=== PATIENT | male | born 1985 | race Hispanic/Latino ===

== ENCOUNTER 2018-12-09 07:50 | Emergency (ER) | payer OTHER ==
[~2018-12-09] VITALS: Ht 167.6 cm; Wt 81.8 kg
[2018-12-09 07:51] VITALS: BP 165/91
[2018-12-09] MEDS ORDERED: TRAZ25TA PO (07:58)
[2018-12-09] MEDS ORDERED: methylpred (07:58)
--- NOTE | 2018-12-09 08:34 | REP ---
Clinical: Pain increased after running Technique: AP, lateral, bilateral oblique views right foot . Findings: The osseous structures and joint spaces are intact and normal. There is no evidence for acute fracture or dislocation. Surrounding soft tissues are unremarkable. No subcutaneous emphysema or radiodense foreign body. Impression: Normal radiographic evaluation. No acute fracture or dislocation. Electronically Signed by Janes Mo MD 12/09/2018 08:25 A
[2018-12-09] MEDS ORDERED: traMADol 50 MG TAB PO ONE (09:15)
== END 2018-12-09 09:28 | disposition home or self-care (01) ==
LOC: M ED 07:50
DX: M72.2 Plantar fascial fibromatosis (principal)

== ENCOUNTER 2019-02-07 14:07 | Inpatient (IN) | payer OTHER ==
[~2019-02-07] VITALS: Ht 167.6 cm; Wt 84.0 kg
[~2019-02-07 14:07] MED LIST: TRAZ25TA PO; methylpred
[2019-02-07 15:17] LABS: HEMATOCRIT 48.3 % (42.0-52.0); HEMOGLOBIN 16.6 g/dl (13.5-17.5); MEAN CORPUSCULAR HEMOGLOBIN 29.5 pg (27.0-33.0); MEAN CORPUSCULAR HGB CONC 34.4 g/dl (32.0-36.5); MEAN CORPUSCULAR VOLUME 85.8 fl (80.0-96.0); PLATELET COUNT, AUTOMATED 268 10^3/uL (150-450); RED BLOOD COUNT 5.63 10^6/uL (4.30-6.10)
[2019-02-07 16:10] LABS: ACETAMINOPHEN LEVEL < 2.0 UG/ML (10.0-30.0); ALBUMIN 4.1 GM/DL (3.2-5.2); ALT/SGPT 55 U/L (12-78); BILIRUBIN,DIRECT < 0.1 MG/DL (0.0-0.2); BILIRUBIN,TOTAL 0.5 MG/DL (0.2-1.0); BLOOD UREA NITROGEN 13 MG/DL (7-18); CALCIUM LEVEL 8.8 MG/DL (8.5-10.1); CARBON DIOXIDE LEVEL 29 MEQ/L (21-32); CHLORIDE LEVEL 106 MEQ/L (98-107); CREATININE FOR GFR 1.08 MG/DL (0.70-1.30); ETHYL ALCOHOL (ETHANOL) < 0.003 % (0.000-0.010); GLOMERULAR FILTRATION RATE > 60.0 (>60); GLUCOSE, FASTING 102 MG/DL (70-100); POTASSIUM SERUM 3.8 MEQ/L (3.5-5.1); SALICYLATE LEVEL < 1.7 MG/DL (5.0-30.0); SODIUM LEVEL 141 MEQ/L (136-145); TOTAL PROTEIN 7.7 GM/DL (6.4-8.2)
[2019-02-07 17:52] LABS: AMPHETAMINES LEVEL URINE NEGATIVE (NEGATIVE); BARBITURATES URINE NEGATIVE (NEGATIVE); BENZODIAZEPINES URINE NEGATIVE (NEGATIVE); CANNABINOIDS URINE NEGATIVE (NEGATIVE); COCAINE METABOLITE URINE NEGATIVE (NEGATIVE); METHADONE URINE NEGATIVE (NEGATIVE); OPIATES URINE NEGATIVE (NEGATIVE); PHENCYCLIDINE URINE NEGATIVE (NEGATIVE)
[2019-02-07] MEDS ORDERED: traZODone 50 MG TAB PO ONE (21:30)
[2019-02-07] MEDS ORDERED: IBUPROFEN 600 MG TAB PO ONE (21:30)
[2019-02-08] MEDS ORDERED: IBUPROFEN 600 MG TAB PO ONE (03:00)
[2019-02-08] MEDS ORDERED: ACETAMINOPHEN TAB 650MG DOSE (2X325MG) PO ONE (03:00)
[2019-02-08] MEDS ORDERED: MELA10CA PO (11:12)
[2019-02-08] MEDS ORDERED: ACETAMINOPHEN TAB 650MG DOSE (2X325MG) PO PRN (17:15)
[2019-02-08] MEDS ORDERED: MOM 30ML SUSPENSION UDC PO PRN (17:15)
[2019-02-08] MEDS ORDERED: MAALOX 30 ML SUSP *UDC PO PRN (17:15)
[2019-02-08] MEDS: NICOTINE 21MG/24HR 1 EA TRANSDERMAL TD SCH (17:30)
[2019-02-08 18:20] VITALS: BP 124/79
[2019-02-08] MEDS: traZODone 50 MG TAB PO PRN (22:50)
[2019-02-09 06:50] VITALS: BP 121/73
[2019-02-09] MEDS: NICOTINE 21MG/24HR 1 EA TRANSDERMAL TD SCH (08:58)
[2019-02-09] MEDS ORDERED: FLUoxetine 20 MG CAP PO SCH (09:00)
[2019-02-09] MEDS: IBUPROFEN 600 MG TAB PO PRN (10:30)
[2019-02-09 12:00] VITALS: BP 126/70
[2019-02-09] MEDS ORDERED: hydrOXYzine 50 MG TAB PO PRN (12:15)
[2019-02-09] MEDS: SERTRALINE HCL 50 MG TAB PO SCH (12:58)
--- NOTE | 2019-02-09 13:12 | HPE ---
DATE OF ADMISSION: 02/08/2019 CHIEF COMPLAINT: History and physical for inpatient mental health unit. HISTORY: Yevgeniy Cormier is a [place] admitted to the mental health unit. The hospitalists are evaluating him for medical issues. He has a history of chronic back pain. He has had increased left paraspinal pain, has been intermittent for over a year, but constant for the last few days. PAST MEDICAL HISTORY: Looks otherwise benign. OUTPATIENT MEDICATIONS: - trazodone - melatonin ALLERGIES: None listed. 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 He is . He has been depressed and angry over his divorce 2 years ago. REVIEW OF SYSTEMS: No weakness in the legs. No bowel or bladder dysfunction. Gait is not affected. PHYSICAL EXAMINATION: Vital signs per flow sheet. He is alert and conversant. HEENT unremarkable. Lungs clear. Heart regular rhythm without murmur. Abdomen soft, nontender, no masses. No peripheral edema. Normal strength, reflexes, sensation in the legs. Straight-leg raising negative bilaterally. He has tender, spastic paravertebral muscles in the midthoracic region. A bit of scoliosis probably related to the muscle spasm. Normal distal neurologic function. IMPRESSION: Back pain. PLAN: He has already an MRI of the cervical and lumbosacral spine ordered. His pain is actually more thoracic right now so will throw a thoracic MRI scan on there as well. Anticipate that whatever findings are present, could be dealt with as an outpatient.
[2019-02-09 18:00] VITALS: BP 130/72
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
[2019-02-09 21:00] VITALS: BP 124/70
[2019-02-10 06:53] VITALS: BP 122/80
[2019-02-10] MEDS: SERTRALINE HCL 50 MG TAB PO SCH (08:39)
--- NOTE | 2019-02-10 14:59 | REP ---
MR lumbar spine without contrast History: Back pain There is no disc bulge or herniation at the L1-2 through L5-L1 levels. The nerves exit the neural foramina without compression. The conus medullaris is normal in appearance terminating at the level of the L1-2 intervertebral disc. There is fatty infiltration of the filum terminale. Normal signal intensity is present in the lumbar intervertebral discs. A hemangioma is present in the L4 vertebral body. Normal signal intensity is present in the remaining lumbar vertebral bodies. Impression: There is no disc bulge or herniation. Electronically Signed by Paulino Avelar MD 02/10/2019 02:51 P
--- NOTE | 2019-02-10 15:05 | REP ---
MR CERVICAL SPINE WITHOUT CONTRAST: HISTORY: Neck pain. A disc bulge is present at the C4-5 level. There is minimal effacement of the thecal sac without spinal cord compression. The C4 neural foramina are patent. A disc bulge is present at the C5-6 level. There is minimal effacement of the thecal sac without spinal cord compression. The C5 neural foramina are patent. There is no other disc bulge or herniation. The remaining neural foramina are patent. The spinal cord is normal in signal intensity. The cerebellar tonsils extend 3 mm inferior through the foramen magnum. Normal signal intensity is present in the cervical vertebral bodies. IMPRESSION: There is cervical spondylosis at the C4-5 and C5-6 levels without spinal cord compression. Electronically Signed by Paulino Avelar MD 02/10/2019 03:09 P
--- NOTE | 2019-02-10 15:08 | REP ---
MR thoracic spine without contrast History: Back pain There is no disc bulge or herniation. There is an increase in the amount of epidural fat. This extends from the T3-4 level inferior to the T8-9 level. There is minimal to mild compression of the thecal sac. The neural foramina are patent. The spinal cord is normal in signal intensity. A hemangioma is present in the T8 vertebral body. Normal signal intensity is present in the the remaining thoracic vertebral bodies. Impression: 1. There is no disc bulge or herniation. 2. Epidural lipomatosis. Electronically Signed by Paulino Avelar MD 02/10/2019 03:00 P
--- NOTE | 2019-02-10 17:57 | IPNPDOC ---
Subjective Date Seen The patient was seen on 02/10/19. Subjective Chief Complaint/HPI Patient seen and examined at bedside. States that his neck/back pain is improved today. He states that the pain is usually worse following physical training while in the . He notes that he has been doing an excessive amount of sit-ups in the recent weeks as part of his training, and notes that the aforementioned pain is exacerbated by sitting up/crunching movement. Denies any acute complaints of chest pain, palpitations, shortness of breath, urinary/fecal incontinence, or any signs of cauda equina. Objective Physical Examination General Exam: Positive: Alert, Cooperative, No Acute Distress ENT Exam: Positive: Atraumatic, Mucous membr. moist/pink Neck Exam: Negative: JVD Chest Exam: Positive: Clear to auscultation, Normal air movement Heart Exam: Positive: Rate Normal, Normal S1, Normal S2 Abdomen Exam: Positive: Soft; Negative: Tenderness Extremity Exam: Negative: Tenderness, Swelling Neuro Exam: Positive: Strength at 5/5 X4 ext, Normal Tone Psych Exam: Positive: Oriented x 3 Other physical findings Mild tenderness to palpation of the paravertebral cervical spinal muscles. Mild tenderness to palpation in the paravertebral area in the L3-4 region. Strength intact Assessment /Plan Plan/VTE VTE Prophylaxis Ordered?: No VTE Exclusion Mechanical Proph: Low Risk for VTE Plan Acute on Chronic Neck/Back Pain 2/2 Physical Training MRI of the Cervical, Thoracic, and Lumbar Spine with no acute findings Follow up as outpatient for PT for ROM exercises/stretching Cont supportive treatment Elevated TSH Free T4 noted to be within normal limits, but on the lower end Repeat TFT's in 6-8 weeks--can consider starting low dose levothyroxine at that time if the patient's TSH remains elevated and Free T4 is low/low normal We will cont to monitor for now Depression Management as per Psychiatry VS, I&O, 24H, Fishbone Vital Signs/I&O Vital Signs Date Time Temp Pulse Resp B/P (MAP) Pulse Ox O2 Delivery O2 Flow Rate FiO2 02/10/19 06:53 98.5 70 14 122/80 (94) 02/08/19 18:20 98 02/08/19 18:03 Room Air Laboratory Data 24H LABS Laboratory Tests 2 02/10/19 11:44: Free Thyroxine 0.76 ALEXEY RAMOS MD Feb 10, 2019 17:57
[2019-02-10 18:00] VITALS: BP 128/63
--- NOTE | 2019-02-10 21:24 | MHIPNPDOC ---
[facility] Progress Note Progress Note DATE OF SERVICE: 02/10/19 HISTORY: Patient is a 33 -year-old , male, who says that he has felt depressed for about 1.5 years.He says that the trigger was the separation from his . he was for 3 years, he says working in the [employer] for 2.5 years didn't help, in fact it was pretty bad because his ex didn't like to be alone because she didn't like to be alone when she was away from the family. Both of them are from [place] and both families are still in [place]. He says he started feeling a if he wanted to kill his Isaac because his SADA has not been empathetic with him, he has been hard on him. 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 He said that he told them that he was not requesting to be working during the days forever, it was just while his adapted to be here but she didn't adapt, he thinks it was because he was not spending time with her and she spent only 10 days here and she went back to [place]. 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 He acknowledges that he is using liquor and he needs help. VITAL SIGNS: See below. NEW TEST RESULTS: See below CURRENT MEDICATIONS: See below. MENTAL STATUS EXAMINATION: Patient is a 33nyear old male, who is alert, cooperative, he seems less tired than yesterday, he looks more organized. Speech: Is normal in rate, tone and volume. Language skills are normal. Thought processes including: a little disorganized, it takes time for him to process his thoughts. Thought content: depressed and anxious thoughts, although he is slightly better today. Description of abnormal or psychotic thoughts: denies having SI, denies having HI, denies AV hallucinations. Judgment: limited Insight: limited. Orientation: x 3 Recent and remote memory: x 3. Attention span and concentration: fair. Language: normal. Fund of knowledge: average. Mood: less depressed: "I'm trying to focus on hte positive things". Affect: constricted, sad DIAGNOSES: 1. Major Depressive disorder with psychosis ASSESSMENT: The patient continues to feel depressed but he is trying to feel better. He says that he wants to improve. 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 Patient is pleasant and cooperative, MANAGEMENT PLAN: Will continue with the same treatment plan. TIME SPENT: 20 minutes. Vital Signs Vital Signs Date Time Temp Pulse Resp B/P (MAP) Pulse Ox O2 Delivery O2 Flow Rate FiO2 02/10/19 18:00 98.5 86 14 128/63 (84) 02/08/19 18:20 98 02/08/19 18:03 Room Air Laboratory Data 24H Labs Laboratory Tests 2 02/10/19 11:44: Free Thyroxine 0.76 Current Medications Current Medications Acetaminophen (Tylenol Tab) 650 mg Q6HP PRN PO HEADACHE or DISCOMFORT; Start 02/08/19 at 17:15; Status Cancel Al Hydrox/Mg Hydrox/Simethicone (Mylanta) 30 ml Q4HP PRN PO HEARTBURN/INDIGESTION; Start 02/08/19 at 17:15 Fluoxetine HCl (PROzac) 20 mg DAILY PO ; Start 02/09/19 at 09:00; Status Cancel Home Med (Med Rec Complete!) ASDIRECTED XX ; Start 02/08/19 at 11:15; Stop 02/08/19 at 11:15; Status DC Hydroxyzine HCl (Atarax) 50 mg Q6H PRN PO ANXIETY/AGITATION Last administered on 02/09/19at 15:46; Start 02/09/19 at 12:15 Ibuprofen (Advil) 600 mg Q6HP PRN PO MODERATE PAIN (PS 5-7) Last administered on 02/09/19at 10:30; Start 02/09/19 at 10:15 Magnesium Hydroxide (Milk Of Magnesia) 30 ml DAILYPRN PRN PO CONSTIPATION; Start 02/08/19 at 17:15 Nicotine (Nicoderm Cq 21mg) 1 patch DAILY TD ; Start 02/08/19 at 17:30; Stop 02/09/19 at 13:11; Status DC Sertraline HCl (Zoloft) 50 mg DAILY PO Last administered on 02/10/19at 08:39; Start 02/09/19 at 09:00 Trazodone HCl (Desyrel) 50 mg QHSP PRN PO INSOMNIA Last administered on 9at 22:50; Start 02/08/19 at 17:15 Allergies Coded Allergies: No Known Allergies (Unverified , 12/09/18) LORIE RIDDLE MD Feb 10, 2019 21:24
[2019-02-11 06:32] VITALS: BP 115/63
[2019-02-11] MEDS: SERTRALINE HCL 50 MG TAB PO SCH (09:03)
[2019-02-11] MEDS: IBUPROFEN 600 MG TAB PO PRN (09:04)
[2019-02-11 18:29] VITALS: BP 138/68
[2019-02-11] MEDS: traZODone 50 MG TAB PO PRN (20:42)
[2019-02-12 06:59] VITALS: BP 118/56
[2019-02-12] MEDS: SERTRALINE HCL 50 MG TAB PO SCH (09:17)
[2019-02-12] MEDS: CYCLOBENZAPRINE 5MG TABLET PO SCH ×2 (11:46→21:46)
--- NOTE | 2019-02-12 11:46 | MHIPN ---
DATE: 02/12/2019 SUBJECTIVE: I am depressed. I messed up my marriage. I have back ache and the ibuprofen is not helping. 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 He also complains of severe back ache. MRI was reviewed. There is some cervical spondylosis. He has been on ibuprofen. MENTAL STATUS EXAM: Appearance: He is well-groomed in hospital gown. Behavior is cooperative. Somewhat restless and pacing. Eye contact: Normal. Speech: Spontaneous. Conversant. Affect is constricted, sad and tearful. Somewhat dramatic at times. Mood is depressed and anxious. Thought content: Denied any auditory or visual hallucinations. Denied any delusions, paranoia, denied suicidal or homicidal thoughts currently. Thought process goal-directed. He is alert and oriented to time, place and person. Memory is intact. Insight and judgment are fair to limited. VITAL SIGNS: Temperature 98.2, pulse is 73, respirations 14, blood pressure 118/56. CURRENT MEDICATIONS: - sertraline 50 mg once daily - trazodone 50 mg at bedtime as needed - ibuprofen 600 mg every 6 hours as needed DIAGNOSES: Unspecified mood disorder. Rule out major depressive disorder. Alcohol use disorder. Chronic back ache. PLAN: Continue ibuprofen and increase his Zoloft to 100 mg in a.m. and add cyclobenzaprine 5 mg twice a day. Continue individual and group therapy. Coordination of care provided with nursing staff and treatment team. Estimated length of stay: 4 to 5 days Patient currently is depressed and still dangerous to self or others.
--- NOTE | 2019-02-12 15:57 | MHIPNPDOC ---
[facility] Progress Note Progress Note DATE OF SERVICE: 02/11/19--- late entry DATE OF SERVICE: 02/10/19 HISTORY: Patient is a 33 -year-old , male, who says that he has felt depressed for about 1.5 years.He says that the trigger was the separation from his . he was for 3 years, he says working in the [employer] for 2.5 years didn't help, in fact it was pretty bad because his ex didn't like to be alone because she didn't like to be alone when she was away from the family. Both of them are from [place] and both families are still in [place]. He says he started feeling a if he wanted to kill his Isaac because his SADA has not been empathetic with him, he has been hard on him. 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 He said that he told them that he was not requesting to be working during the days forever, it was just while his adapted to be here but she didn't adapt, he thinks it was because he was not spending time with her and she spent only 10 days here and she went back to [place]. 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 He acknowledges that he is using liquor and he needs help. VITAL SIGNS: See below. NEW TEST RESULTS: See below CURRENT MEDICATIONS: See below. MENTAL STATUS EXAMINATION: Patient is a 33nyear old male, who is alert, cooperative, he seems less tired than yesterday, he looks more organized. Speech: Is normal in rate, tone and volume. Language skills are normal. Thought processes including: a little disorganized, it takes time for him to process his thoughts. Thought content: depressed, frustrated, angry (but contained) Description of abnormal or psychotic thoughts: denies having SI, denies having HI, denies AV hallucinations. Judgment: limited Insight: limited Orientation: x 3 Recent and remote memory: x 3. Attention span and concentration: fair. Language: normal. Fund of knowledge: average. Mood: less depressed, angry, frustrated. Affect: constricted, sad DIAGNOSES: 1. Major Depressive disorder with psychosis ASSESSMENT: The patient continued to be depressed, expressed his anger and frustration. He agreed going for prison treatment. This feature writer tried to get in touch with Neurology but they were closed for the day at [facility] and this was not an Emergency, so, I will contact Dr. Fisher on Thursday regarding patient's MRI which shows an hemangioma at the level or L4 as well as some bulges and other abnormalities in the cervical spine. MANAGEMENT PLAN: Will continue with the same treatment plan. TIME SPENT: 20 minutes. Vital Signs Vital Signs Date Time Temp Pulse Resp B/P (MAP) Pulse Ox O2 Delivery O2 Flow Rate FiO2 02/12/19 06:59 98.2 73 14 118/56 (76) 02/10/19 21:00 98 02/08/19 18:03 Room Air Current Medications Current Medications Acetaminophen (Tylenol Tab) 650 mg Q6HP PRN PO HEADACHE or DISCOMFORT; Start 02/08/19 at 17:15; Status Cancel Al Hydrox/Mg Hydrox/Simethicone (Mylanta) 30 ml Q4HP PRN PO HEARTBURN/INDIGESTION; Start 02/08/19 at 17:15 Cyclobenzaprine HCl (Flexeril) 5 mg BID PO Last administered on 02/12/19at 11:46; Start 02/12/19 at 09:00 Fluoxetine HCl (PROzac) 20 mg DAILY PO ; Start 02/09/19 at 09:00; Status Cancel Home Med (Med Rec Complete!) ASDIRECTED XX ; Start 02/08/19 at 11:15; Stop 02/08/19 at 11:15; Status DC Hydroxyzine HCl (Atarax) 50 mg Q6H PRN PO ANXIETY/AGITATION Last administered on 02/09/19at 15:46; Start 02/09/19 at 12:15 Ibuprofen (Advil) 600 mg Q6HP PRN PO MODERATE PAIN (PS 5-7) Last administered on 02/11/19at 09:04; Start 02/09/19 at 10:15 Magnesium Hydroxide (Milk Of Magnesia) 30 ml DAILYPRN PRN PO CONSTIPATION; Start 02/08/19 at 17:15 Nicotine (Nicoderm Cq 21mg) 1 patch DAILY TD ; Start 02/08/19 at 17:30; Stop 02/09/19 at 13:11; Status DC Sertraline HCl (Zoloft) 50 mg DAILY PO Last administered on 02/12/19at 09:17; Start 02/09/19 at 09:00; Stop 02/12/19 at 11:18; Status DC Sertraline HCl (Zoloft) 100 mg DAILY PO ; Start 02/13/19 at 09:00 Trazodone HCl (Desyrel) 50 mg QHSP PRN PO INSOMNIA Last administered on 02/11/19at 20:42; Start 02/08/19 at 17:15 Allergies Coded Allergies: No Known Allergies (Unverified , 12/09/18) LORIE RIDDLE MD Feb 12, 2019 15:57
[2019-02-12 18:00] VITALS: BP 118/66
[2019-02-12] MEDS: traZODone 50 MG TAB PO PRN (21:46)
[2019-02-13 06:55] VITALS: BP 132/63
[2019-02-13] MEDS: SERTRALINE 100 MG TAB PO SCH (09:00)
[2019-02-13] MEDS: CYCLOBENZAPRINE 5MG TABLET PO SCH ×2 (09:00→20:50)
[2019-02-13 18:00] VITALS: BP 129/65
[2019-02-14 06:23] VITALS: BP 116/56
[2019-02-14] MEDS: SERTRALINE 100 MG TAB PO SCH (09:09)
[2019-02-14] MEDS: CYCLOBENZAPRINE 5MG TABLET PO SCH ×2 (09:09→21:21)
[2019-02-14 18:03] VITALS: BP 136/81
[2019-02-14] MEDS: BENZTROPINE 0.5 MG TAB PO SCH (21:00)
[2019-02-14] MEDS: PALIPERIDONE 3 MG ER TAB (INVEGA) PO SCH (21:00)
[2019-02-15 06:48] VITALS: BP 113/61
[2019-02-15] MEDS: PALIPERIDONE 3 MG ER TAB (INVEGA) PO SCH ×2 (09:00→21:00)
[2019-02-15] MEDS: CYCLOBENZAPRINE 5MG TABLET PO SCH ×2 (09:27→21:34)
[2019-02-15] MEDS: SERTRALINE 100 MG TAB PO SCH (09:27)
[2019-02-15 18:00] VITALS: BP 125/77
--- NOTE | 2019-02-15 18:33 | MHIPNPDOC ---
[facility] Progress Note Progress Note DATE OF SERVICE: 02/14/19 HISTORY: Patient is a 33 -year-old , male, who says that he has felt depressed for about 1.5 years.He says that the trigger was the separation from his . he was for 3 years, he says working in the [employer] for 2.5 years didn't help, in fact it was pretty bad because his ex didn't like to be alone because she didn't like to be alone when she was away from the family. Both of them are from [place] and both families are still in [place]. He says he started feeling a if he wanted to kill his Isaac because his SADA has not been empathetic with him, he has been hard on him. 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 He said that he told them that he was not requesting to be working during the days forever, it was just while his adapted to be here but she didn't adapt, he thinks it was because he was not spending time with her and she spent only 10 days here and she went back to [place]. 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 He acknowledges that he is using liquor and he needs help. VITAL SIGNS: See below. NEW TEST RESULTS: See below CURRENT MEDICATIONS: See below. MENTAL STATUS EXAMINATION: Patient is a 33nyear old male, who is alert, cooperative, he seems less tired than yesterday, he looks absent Speech: Is normal in rate, tone and volume. Language skills are normal. Thought processes including: a little disorganized, it continues to take time for him to process his thoughts Thought content: depressed, frustrated, angry, irritable Description of abnormal or psychotic thoughts: denies having SI, denies having HI, denies AV hallucinations. Judgment: poor Insight: poor Orientation: x 3 Recent and remote memory: x 3. Attention span and concentration: fair. Language: normal. Fund of knowledge: average. Mood: depressed, angry, frustrated. Affect: constricted, sad DIAGNOSES: 1. Major Depressive disorder with psychosis ASSESSMENT: Contacted Dr. Olivia who said the fatty infiltrates and the hemangiomas are nothing to worry about, that they are incidental findings in an MRI. Explained there is cervical spondylosis at the level of C4-C5 and C5-C6, an hemangioma at the level of L4 and tonsillar ectopy. He said those are incidental findings, there was nothing that could be done about the patient at this time, that the patient can f/u with physical therapy at [place] where they have a N eurosurgeon that could address this issue. Regarding the patient, he continues to be paranoid, he says he has not been attending groups because he doesn't like them and I explained that I have told him he needs therapy, that medications are not enough. He becomes angry when I mention that maybe he was brought up in a repressive way and he tells me it is not the way that he was brought up but it was the [employer] who have repressed him. All of this using foul language and transferring to me all the anger he has towards the [employer]. It seemed that after a long period of conversation, he understood something but when he left the room, he was once again, looking disorganized. MANAGEMENT PLAN: Will continue with the same treatment plan. TIME SPENT: 20 minutes. Vital Signs Vital Signs Date Time Temp Pulse Resp B/P (MAP) Pulse Ox O2 Delivery O2 Flow Rate FiO2 02/14/19 18:03 98.7 77 16 136/81 (99) 02/10/19 21:00 98 02/08/19 18:03 Room Air Current Medications Current Medications Acetaminophen (Tylenol Tab) 650 mg Q6HP PRN PO HEADACHE or DISCOMFORT; Start 02/08/19 at 17:15; Status Cancel Al Hydrox/Mg Hydrox/Simethicone (Mylanta) 30 ml Q4HP PRN PO HEARTBURN/INDIGE STION; Start 02/08/19 at 17:15 Cyclobenzaprine HCl (Flexeril) 5 mg BID PO Last administered on 02/14/19at 09:09; Start 02/12/19 at 09:00 Fluoxetine HCl (PROzac) 20 mg DAILY PO ; Start 02/09/19 at 09:00; Status Cancel Home Med (Med Rec Complete!) ASDIRECTED XX ; Start 02/08/19 at 11:15; Stop 02/08/19 at 11:15; Status DC Hydroxyzine HCl (Atarax) 50 mg Q6H PRN PO ANXIETY/AGITATION Last administered on 02/09/19at 15:46; Start 02/09/19 at 12:15 Ibuprofen (Advil) 600 mg Q6HP PRN PO MODERATE PAIN (PS 5-7) Last administered on 02/11/19 09:04; Start 02/09/19 at 10:15 Magnesium Hydroxide (Milk Of Magnesia) 30 ml DAILYPRN PRN PO CONSTIPATION; Sta rt 02/08/19 at 17:15 Nicotine (Nicoderm Cq 21mg) 1 patch DAILY TD ; Start 02/08/19 at 17:30; Stop 02/09/19 at 13:11; Status DC Sertraline HCl (Zoloft) 50 mg DAILY PO Last administered on 02/12/19 09:17; Start 02/09/19 at 09:00; Stop 02/12/19 at 11:18; Status DC Sertraline HCl (Zoloft) 100 mg DAILY PO Last administered on 02/14/19 09:09; Start 02/13/19 at 09:00 Trazodone HCl (Desyrel) 50 mg QHSP PRN PO INSOMNIA Last administered on 02/12/19at 21:46; Start 02/08/19 at 17:15 Allergies Coded Allergies: No Known Allergies (Unverified , 12/09/18) LORIE RIDDLE MD Feb 14, 2019 19:22
--- NOTE | 2019-02-15 19:02 | MHIPNPDOC ---
[facility] Progress Note Progress Note DATE OF SERVICE: 02/15/19 HISTORY: Patient is a 33 -year-old , male, who says that he has felt depressed for about 1.5 years.He says that the trigger was the separation from his . he was for 3 years, he says working in the [employer] for 2.5 years didn't help, in fact it was pretty bad because his ex didn't like to be alone because she didn't like to be alone when she was away from the family. Both of them are from [place] and both families are still in [place]. He says he started feeling a if he wanted to kill his Isaac because his SADA has not been empathetic with him, he has been hard on him. 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 He said that he told them that he was not requesting to be working during the days forever, it was just while his adapted to be here but she didn't adapt, he thinks it was because he was not spending time with her and she spent only 10 days here and she went back to [place]. 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 He acknowledges that he is using liquor and he needs help. VITAL SIGNS: See below. NEW TEST RESULTS: See below CURRENT MEDICATIONS: See below. MENTAL STATUS EXAMINATION: Patient is a 33nyear old male, who is alert, cooperative, he seems less tired than yesterday, he looks absent Speech: Is normal in rate, tone and volume. Language skills are normal. Thought processes including: a little disorganized, it continues to take time for him to process his thoughts, he has thought blocking Thought content: depressed, less frustrated Description of abnormal or psychotic thoughts: denies having SI, denies having HI, denies AV hallucinations. He is paranoid Judgment: poor Insight: poor Orientation: x 3 Recent and remote memory: x 3. Attention span and concentration: fair. Language: normal. Fund of knowledge: average. Mood: less angry, less frustrated than yesterday. Affect: constricted, sad DIAGNOSES: 1. Major Depressive disorder with psychosis ASSESSMENT: Patient says he doesn't want to go o nursing home, he says that he feels better, he has been getting out of bed, has been more communicative with staff and peers. I explained that it is convenient for him to go [facility], that he needs to take his antipsychotics but he says he doesn't think he is paranoid. Once again I told him that I thought it would be a good idea for him to accept his medications and go to [facility] because his SADA might drop by and tell him that he has to go, because they want him to have a better performance. MANAGEMENT PLAN: Will continue with the same treatment plan. TIME SPENT: 20 minutes. Vital Signs Vital Signs Vital Signs Date Time Temp Pulse Resp B/P (MAP) Pulse Ox O2 Delivery O2 Flow Rate FiO2 02/15/19 06:48 97.9 75 12 113/61 (78) 02/10/19 21:00 98 Current Medications Current Medications Acetaminophen (Tylenol Tab) 650 mg Q6HP PRN PO HEADACHE or DISCOMFORT; Start 02/08/19 at 17:15; Status Cancel Al Hydrox/Mg Hydrox/Simethicone (Mylanta) 30 ml Q4HP PRN PO HEARTBURN/INDIGESTION; Start 02/08/19 at 17:15 Benztropine Mesylate (Cogentin) 0.5 mg QHS PO ; Start 02/14/19 at 21:00 Cyclobenzaprine HCl (Flexeril) 5 mg BID PO Last administered on 02/15/19at 09:27; Start 02/12/19 at 09:00 Fluoxetine HCl (PROzac) 20 mg DAILY PO ; Start 02/09/19 at 09:00; Status Cancel Home Med (Med Rec Complete!) ASDIRECTED XX ; Start 02/08/19 at 11:15; Stop 02/08/19 at 11:15; Status DC Hydroxyzine HCl (Atarax) 50 mg Q6H PRN PO ANXIETY/AGITATION Last administered on 02/09/19at 15:46; Start 02/09/19 at 12:15 Ibuprofen (Advil) 600 mg Q6HP PRN PO MODERATE PAIN (PS 5-7) Last administered on 02/11/19at 09:04; Start 02/09/19 at 10:15 Magnesium Hydroxide (Milk Of Magnesia) 30 ml DAILYPRN PRN PO CONSTIPATION; Start 02/08/19 at 17:15 Nicotine (Nicoderm Cq 21mg) 1 patch DAILY TD ; Start 02/08/19 at 17:30; Stop 02/09/19 at 13:11; Status DC Paliperidone (Invega) 3 mg BID PO ; Start 02/14/19 at 21:00; Stop 02/15/19 at 10:37; Status DC Paliperidone (Invega) 3 mg QHS PO ; Start 02/15/19 at 21:00 Sertraline HCl (Zoloft) 50 mg DAILY PO Last administered on 02/12/19at 09:17; Start 02/09/19 at 09:00; Stop 02/12/19 at 11:18; Status DC Sertraline HCl (Zoloft) 100 mg DAILY PO Last administered on 02/15/19at 09:27; Start 02/13/19 at 09:00 Trazodone HCl (Desyrel) 50 mg QHSP PRN PO INSOMNIA Last administered on 02/12/19at 21:46; Start 02/08/19 at 17:15 Allergies Coded Allergies: No Known Allergies (Unverified , 12/09/18) LORIE RIDDLE MD Feb 15, 2019 18:37
[2019-02-15] MEDS: BENZTROPINE 0.5 MG TAB PO SCH (21:00)
[2019-02-15] MEDS: traZODone 50 MG TAB PO PRN (21:34)
[2019-02-16 07:00] VITALS: BP 115/55
[2019-02-16] MEDS: CYCLOBENZAPRINE 5MG TABLET PO SCH ×2 (09:08→21:25)
[2019-02-16] MEDS: SERTRALINE 100 MG TAB PO SCH (09:08)
--- NOTE | 2019-02-16 09:29 | REP ---
MRI brain without contrast: History: Necrosis. Rule out other medical illnesses. . Comparison study: No comparison brain imaging. Technique: Axial and sagittal imaging planes are utilized for T1 and T2-weighted scans. Sequences include spin-echo, fast spin echo, FLAIR, and diffusion weighted sequences. MRI findings: No bony calvarial lesion is seen. Craniocervical junction and upper cervical cord are normal in appearance. There is no MR evidence of significant paranasal sinus disease. No intraorbital abnormality is seen. The lateral, third, and fourth ventricles are normal in size and position. Goldman-white differentiation pattern is intact above and below the tentorium. There is no evidence of intracranial hemorrhage. No mass, infarction, extra-axial fluid collection or midline shift is seen. No abnormal white matter lesion is seen. Impression: Negative noncontrast brain MRI study. Electronically Signed by Cachorro Florez MD 02/16/2019 09:20 A
--- NOTE | 2019-02-16 09:58 | MHIPNPDOC ---
[facility] Progress Note Progress Note DATE OF SERVICE: 02/16/19 DATE OF SERVICE: 02/15/19 HISTORY: Patient is a 33 -year-old , male, who says that he has felt depressed for about 1.5 years.He says that the trigger was the separation from his . he was for 3 years, he says working in the [employer] for 2.5 years didn't help, in fact it was pretty bad because his ex didn't like to be alone because she didn't like to be alone when she was away from the family. Both of them are from [place] and both families are still in [place]. He says he started feeling a if he wanted to kill his Isaac because his SADA has not been empathetic with him, he has been hard on him. 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 He said that he told them that he was not requesting to be working during the days forever, it was just while his adapted to be here but she didn't adapt, he thinks it was because he was not spending time with her and she spent only 10 days here and she went back to [place]. 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 He acknowledges that he is using liquor and he needs help. Interval history: Says he feels more energized since admission, says he wants to go to sikhism after he leaves to get "more positive vibes". reports being more social on the unit. 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 Says this has eased his anxieties since they are not alone with their problems. Continues to refuse to paliperidone, says he thinks "mood swings in the [employer] are normal" and not a problem he can solve with medicine, rather prefers therapy at [facility]. Denies SI/HI/AVH/netta. VITAL SIGNS: See below. NEW TEST RESULTS: See below CURRENT MEDICATIONS: See below. MENTAL STATUS EXAMINATION: Patient is a 33nyear old male, who is alert, cooperative, he seems less tired than yesterday, he looks absent Speech: Is normal in rate, tone and volume. Language skills are normal. Thought processes including: a little disorganized, it continues to take time for him to process his thoughts, he has thought blocking Thought content: depressed, less frustrated Description of abnormal or psychotic thoughts: denies having SI, denies having HI, denies AV hallucinations. He is paranoid Judgment: poor Insight: poor Orientation: x 3 Recent and remote memory: x 3. Attention span and concentration: fair. Language: normal. Fund of knowledge: average. Mood: less anxious or irritable. Affect: constricted, mildly dysthymic DIAGNOSES: 1. Major Depressive disorder with psychosis ASSESSMENT: Patient does not want long-term treatment. He continues to refuse paliperidone for paranoia. Has an aversion to starting medications before receiving therapy. Explained he needs both medications in conjunction with therapy to improve. Denies side effects from medications. Denies SI/HI/AVH/netta. MANAGEMENT PLAN: Will continue with the same treatment plan. TIME SPENT: 15 minutes. Vital Signs Vital Signs Date Time Temp Pulse Resp B/P (MAP) Pulse Ox O2 Delivery O2 Flow Rate FiO2 02/16/19 07:00 97.9 59 14 115/55 (75) 02/10/19 21:00 98 Current Medications Current Medications Acetaminophen (Tylenol Tab) 650 mg Q6HP PRN PO HEADACHE or DISCOMFORT; Start 02/08/19 at 17:15; Status Cancel Al Hydrox/Mg Hydrox/Simethicone (Mylanta) 30 ml Q4HP PRN PO HEARTBURN/INDIGESTION; Start 02/08/19 at 17:15 Benztropine Mesylate (Cogentin) 0.5 mg QHS PO ; Start 02/14/19 at 21:00 Cyclobenzaprine HCl (Flexeril) 5 mg BID PO Last administered on 02/16/19at 09:08; Start 02/12/19 at 09:00 Fluoxetine HCl (PROzac) 20 mg DAILY PO ; Start 02/09/19 at 09:00; Status Cancel Home Med (Med Rec Complete!) ASDIRECTED XX ; Start 02/08/19 at 11:15; Stop 02/08/19 at 11:15; Status DC Hydroxyzine HCl (Atarax) 50 mg Q6H PRN PO ANXIETY/AGITATION Last administered on 02/09/19at 15:46; Start 02/09/19 at 12:15 Ibuprofen (Advil) 600 mg Q6HP PRN PO MODERATE PAIN (PS 5-7) Last administered on 02/11/19at 09:04; Start 02/09/19 at 10:15 Magnesium Hydroxide (Milk Of Magnesia) 30 ml DAILYPRN PRN PO CONSTIPATION; Start 02/08/19 at 17:15 Nicotine (Nicoderm Cq 21mg) 1 patch DAILY TD ; Start 02/08/19 at 17:30; Stop 02/09/19 at 13:11; Status DC Paliperidone (Invega) 3 mg BID PO ; Start 02/14/19 at 21:00; Stop 02/15/19 at 10:37; Status DC Paliperidone (Invega) 3 mg QHS PO ; Start 02/15/19 at 21:00 Sertraline HCl (Zoloft) 50 mg DAILY PO Last administered on 02/12/19at 09:17; Start 02/09/19 at 09:00; Stop 02/12/19 at 11:18; Status DC Sertraline HCl (Zoloft) 100 mg DAILY PO Last administered on 02/16/19at 09:08; Start 02/13/19 at 09:00 Trazodone HCl (Desyrel) 50 mg QHSP PRN PO INSOMNIA Last administered on 02/15/19at 21:34; Start 02/08/19 at 17:15 Allergies Coded Allergies: No Known Allergies (Unverified , 12/09/18) JL DILLON PGY-1 Feb 16, 2019 09:58
[2019-02-16 18:00] VITALS: BP 138/84
[2019-02-16] MEDS: PALIPERIDONE 3 MG ER TAB (INVEGA) PO SCH (21:00)
[2019-02-16] MEDS: BENZTROPINE 0.5 MG TAB PO SCH (21:00)
[2019-02-16] MEDS: traZODone 50 MG TAB PO PRN (21:25)
[2019-02-17 07:00] VITALS: BP 111/75
[2019-02-17] MEDS: SERTRALINE 100 MG TAB PO SCH (09:24)
[2019-02-17] MEDS: CYCLOBENZAPRINE 5MG TABLET PO SCH ×2 (09:24→20:43)
--- NOTE | 2019-02-17 17:16 | MHIPNPDOC ---
[facility] Progress Note Progress Note DATE OF SERVICE: 02/17/19 HISTORY: Patient is a 33 -year-old , male, who says that he has felt depressed for about 1.5 years.He says that the trigger was the separation from his . he was for 3 years, he says working in the [employer] for 2.5 years didn't help, in fact it was pretty bad because his ex didn't like to be alone because she didn't like to be alone when she was away from the family. Both of them are from [place] and both families are still in [place]. He says he started feeling a if he wanted to kill his Isaac because his SADA has not been empathetic with him, he has been hard on him. 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 He said that he told them that he was not requesting to be working during the days forever, it was just while his adapted to be here but she didn't adapt, he thinks it was because he was not spending time with her and she spent only 10 days here and she went back to [place]. He has felt as if undercover [facility] persons are following him to verify that he doesn't go back home after his appointments, he saw a fellow [employer] man at the gym once and he saw the same person again, once he was at a bar. He acknowledges that he is using liquor and he needs help. Interval history: Says he feels more energized since admission, says he wants to go to mormonism after he leaves to get "more positive vibes". reports being more social on the unit. 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 Says this has eased his anxieties since they are not alone with their problems. 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 Denies SI/HI/AVH/netta. VITAL SIGNS: See below. NEW TEST RESULTS: See below CURRENT MEDICATIONS: See below. MENTAL STATUS EXAMINATION: Patient is a 33nyear old male, who is alert, cooperative, he seems less tired than yesterday, he looks absent Speech: Is normal in rate, tone and volume. Language skills are normal. Thought processes including: a little disorganized, it continues to take time for him to process his thoughts, he has thought blocking Thought content: depressed, less frustrated Description of abnormal or psychotic thoughts: denies having SI, denies having HI, denies AV hallucinations. He is paranoid Judgment: poor Insight: poor Orientation: x 3 Recent and remote memory: x 3. Attention span and concentration: fair. Language: normal. Fund of knowledge: average. Mood: less anxious or irritable. Affect: constricted, mildly dysthymic DIAGNOSES: 1. Major Depressive disorder with psychosis ASSESSMENT: Patient continues to refuse fpc and antipsychotic medications. He continues to present with thought blocking, his insight and judgement are still poor, he remains paranoid. MANAGEMENT PLAN: Will continue with the same treatment plan. TIME SPENT: 15 minutes. Vital Signs Vital Signs Date Time Temp Pulse Resp B/P (MAP) Pulse Ox O2 Delivery O2 Flow Rate FiO2 02/17/19 07:00 98.1 58 14 111/75 (87) Current Medications Current Medications Acetaminophen (Tylenol Tab) 650 mg Q6HP PRN PO HEADACHE or DISCOMFORT; Start 02/08/19 at 17:15; Status Cancel Al Hydrox/Mg Hydrox/Simethicone (Mylanta) 30 ml Q4HP PRN PO HEARTBURN/INDIGESTION; Start 02/08/19 at 17:15 Benztropine Mesylate (Cogentin) 0.5 mg QHS PO ; Start 02/14/19 at 21:00 Cyclobenzaprine HCl (Flexeril) 5 mg BID PO Last administered on 02/17/19at 09:24; Start 02/12/19 at 09:00 Fluoxetine HCl (PROzac) 20 mg DAILY PO ; Start 02/09/19 at 09:00; Status Cancel Home Med (Med Rec Complete!) ASDIRECTED XX ; Start 02/08/19 at 11:15; Stop 02/08/19 at 11:15; Status DC Hydroxyzine HCl (Atarax) 50 mg Q6H PRN PO ANXIETY/AGITATION Last administered on 02/09/19at 15:46; Start 02/09/19 at 12:15 Ibuprofen (Advil) 600 mg Q6HP PRN PO MODERATE PAIN (PS 5-7) Last administered on 02/11/19at 09:04; Start 02/09/19 at 10:15 Magnesium Hydroxide (Milk Of Magnesia) 30 ml DAILYPRN PRN PO CONSTIPATION; Start 02/08/19 at 17:15 Nicotine (Nicoderm Cq 21mg) 1 patch DAILY TD ; Start 02/08/19 at 17:30; Stop 02/09/19 at 13:11; Status DC Paliperidone (Invega) 3 mg BID PO ; Start 02/14/19 at 21:00; Stop 02/15/19 at 10:37; Status DC Paliperidone (Invega) 3 mg QHS PO ; Start 02/15/19 at 21:00 Sertraline HCl (Zoloft) 50 mg DAILY PO Last administered on 02/12/19at 09:17; Start 02/09/19 at 09:00; Stop 02/12/19 at 11:18; Status DC Sertraline HCl (Zoloft) 100 mg DAILY PO Last administered on 02/17/19at 09:24; Start 02/13/19 at 09:00 Trazodone HCl (Desyrel) 50 mg QHSP PRN PO INSOMNIA Last administered on 02/16/19at 21:25; Start 02/08/19 at 17:15 Allergies Coded Allergies: No Known Allergies (Unverified , 12/09/18) LORIE RIDDLE MD Feb 17, 2019 16:46
[2019-02-17 18:00] VITALS: BP 134/70
[2019-02-17] MEDS: traZODone 50 MG TAB PO PRN (20:43)
[2019-02-17] MEDS: BENZTROPINE 0.5 MG TAB PO SCH (20:44)
[2019-02-17] MEDS: PALIPERIDONE 3 MG ER TAB (INVEGA) PO SCH (20:44)
[2019-02-18 06:50] VITALS: BP 133/79
[2019-02-18] MEDS: CYCLOBENZAPRINE 5MG TABLET PO SCH ×2 (08:59→21:34)
[2019-02-18] MEDS: SERTRALINE 100 MG TAB PO SCH (08:59)
[2019-02-18 18:29] VITALS: BP 131/74
[2019-02-18] MEDS: PALIPERIDONE 3 MG ER TAB (INVEGA) PO SCH (21:00)
[2019-02-18] MEDS: BENZTROPINE 0.5 MG TAB PO SCH (21:00)
[2019-02-18] MEDS: traZODone 50 MG TAB PO PRN (21:34)
[2019-02-19 06:58] VITALS: BP 108/62
[2019-02-19] MEDS: SERTRALINE 100 MG TAB PO SCH (09:19)
[2019-02-19] MEDS: CYCLOBENZAPRINE 5MG TABLET PO SCH ×2 (09:19→22:03)
[2019-02-19 18:36] VITALS: BP 109/56
[2019-02-19] MEDS: PALIPERIDONE 3 MG ER TAB (INVEGA) PO SCH (21:00)
[2019-02-19] MEDS: BENZTROPINE 0.5 MG TAB PO SCH (21:00)
[2019-02-19] MEDS: traZODone 50 MG TAB PO PRN (22:03)
[2019-02-20 06:45] VITALS: BP 113/55
[2019-02-20] MEDS: CYCLOBENZAPRINE 5MG TABLET PO SCH ×2 (08:41→20:50)
[2019-02-20] MEDS: SERTRALINE 100 MG TAB PO SCH (08:41)
[2019-02-20 18:26] VITALS: BP 102/57
[2019-02-20] MEDS: BENZTROPINE 0.5 MG TAB PO SCH (20:51)
[2019-02-20] MEDS: traZODone 50 MG TAB PO PRN (20:52)
[2019-02-20] MEDS: PALIPERIDONE 3 MG ER TAB (INVEGA) PO SCH (20:52)
[2019-02-21 07:08] VITALS: BP 139/62
[2019-02-21] MEDS: SERTRALINE 100 MG TAB PO SCH (09:01)
[2019-02-21] MEDS: CYCLOBENZAPRINE 5MG TABLET PO SCH (09:01)
[2019-02-21] MEDS ORDERED: SERT-138 PO (11:24)
[2019-02-21] MEDS ORDERED: TRAZO50TA PO (11:24)
[2019-02-21] MEDS ORDERED: HYDRO50TAB PO (11:24)
[2019-02-21] MEDS ORDERED: CYCL5TAB PO (13:32)
--- NOTE | 2019-02-21 20:15 | MHDSPDOC ---
[facility] Discharge Summary Discharge Summary DATE OF ADMISSION: Feb 08, 2019 at 17:10 DATE OF DISCHARGE: Feb 21, 2019 at 13:45 DISCHARGE DIAGNOSES: 1. Major Depressive Disorder, recurrent, severe (improving) REASON FOR ADMISSION: Chief Complaint Increasing depression and suicidal ideation History of Present Illness HISTORY OF THE PRESENT ILLNESS: Patient is a 33 -year-old , male, who says that he has felt depressed for about 1.5 years.He says that the trigger was the separation from his . he was for 3 years, he says working in the [employer] for 2.5 years didn't help, in fact it was pretty bad because his ex didn't like to be alone because she didn't like to be alone when she was away from the family. Both of them are from [place] and both families are still in [place]. He says he started feeling a if he wanted to kill his Isaac because his SADA has not been empathetic with him, he has been hard on him. 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 He said that he told them that he was not requesting to be working during the days forever, it was just while his adapted to be here but she didn't adapt, he thinks it was because he was not spending time with her and she spent only 10 days here and she went back to [place]. 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 He acknowledges that he is using liquor and he needs help. CONSULTANTS INVOLVED: Neurology, Dr. Tucker but he did the consult over the phone, based on patient's MRI findings. TREATMENT AND PROGRESS ON THE UNIT : The patient was extremely depressed, his affect was very flat and he was very angry at the [employer], where he blamed them for his failed marital life saying they had put a strain in his marriage for not allowing him to work during the days while his ex came to visit him. He reported feeling extremely depressed since she left after just a short visit (10 days). The divorce was finalized on january 11 and this was the trigger for this crisis although he said he had been depressed for over one and a half year. The patient had a good response to Zoloft but initially, given the severity of his depression, his negative cognitive distortions and his paranoid thoughts regarding the [employer], this instructional writer had proposed to go for intermediate treatment and the first day he said he would go if I recommended it. Next day he said he had second thoughts and he said he didn't want to go because it would affect his job.This instructional writer re assured him this would not happen but he said it was better not to go. He presented this way for some days and then, he finally said he was not going. He refused to take antipsychotic medications that I thought he needed initially because he was specifically paranoid regarding the [employer]. As his depression improved and he attended groups besides meeting with this instructional writer, his paranoid thoughts started to fade. An MRI of his back was performed because he complained of severe back pain and he improved with Flexeril 5 mgs PO BID. His MRI showed hemangiomas at the level of T8 and L4, minimal to mild compression of the thecal sac in his thoracic spine, fatty deposits in different areas, tonsillar ectopy of 3 mms below the foramen magna, changes consistent with cervical spondylosis at the C4-5 and C5-6 levels without spinal cord compression. Dr. Avelar said those were incidental findings and they were not acute, that the patient could be referred to the Neurosurgeon that works at [place]. The patient also has a problem of plantar fasciitis on both feet and these health problems contribute to his feelings of hopelessness, helplessness and worthlessness. During his last days at [facility], his mood and affect had improved, they were brighter, he not longer exhibited paranoid thoughts about the [employer]. He was seen socializing, he smiled and joked. He was not longer in danger to self or others, he was not suicidal, not homicidal and not psychotic. HOSPITAL COURSE: As above DISCHARGE ASSESSMENT: At the time of his discharge he was not longer in danger to self or others, he was not suicidal, not homicidal and not psychotic. His mood and affect had improved, he was goal orientated, felt safe to return to the [employer], was responding well to medication and did not report medication side effects. MENTAL STATUS EXAMINATION ON DISCHARGE: Patient is a 33-year old male, who is alert, cooperative, dressed in hospital clothes, good hygiene. Speech is normal in rate, tone and volume, spontaneous and fluent. Language skills are good. Thought processes including: linear, coherent. Thought content: goal orientated, he wants to remain in the [employer] to learn more about aircrafts. Abstract reasoning, and computation: good. Description of associations: good. Description of abnormal or psychotic thoughts: denies SI, denies HI, denies thought delusions, denies Av hallucinations. Judgment: Improved. Insight: Improved. Orientation to x 3. Recent and remote memory: intact. Attention span and concentration: good. Language: good. Fund of knowledge: average. Mood: euthymic. Affect: congruent with mood, bright, full, appropriate. MEDICATIONS ON DISCHARGE: Scheduled Cyclobenzaprine HCl (Cyclobenzaprine HCl) 5 Mg Tablet, 5 MG PO BID for muscle spasms, #14 Sertraline HCl (Sertraline HCl) 100 Mg Tablet, 100 MG PO DAILY for depression, #7 Trazodone HCl (Trazodone HCl) 50 Mg Tab, 75 TAB PO QHS, (Reported) Scheduled PRN Hydroxyzine HCl (Hydroxyzine HCl) 50 Mg Tablet, 50 MG PO Q6H PRN for ANXIETY/AGITATION, #28 Melatonin (Melatonin) 10 Mg Cap, 10 MG PO QHS PRN for SLEEP, (Reported) Trazodone HCl (Trazodone HCl) 50 Mg Tablet, 50 MG PO QHSP PRN for INSOMNIA, #7 PLAN/FOLLOWUP ARRANGEMENTS: Follow Up Care Education Label * Mental Health Appt 1 * Additional information 3D [facility]/3BCT HEBERT LOGAN [id number] FTR/60 PENDING Arrive 15 min early IOP/RIMMA VAUGHN [id number]@0930 GRP/120 PENDING Arrive 15 min early 3D T [facility]/3BCT BABITA SMITH [id number]@1500 FTR/60 PENDING Arrive 15 min early 3D BCT [facility]/3BCT R[place]A [id number]@0930 SPEC/90 PENDING Arrive 15 min early 3D T [facility]/3BCT BABITA SMITH [id number]@1230 FTR/60 PENDING Arrive 15 min early 3D T [facility]/3BCT BABITA SMITH [id number]@1100 FTR/60 PENDING Arrive 15 min early 3D BCT [facility] BABITA SMITH [id number]@1300 FTR/60 PENDING Arrive 15 min early Follow Up Care Education Label * Medical * Medical Follow Up [facility] * Established With This Provider Yes * Additional information UNABLE TO SCHEDULE DUE TO TECHNICAL ISSUES. WILL CONTACT PATIENT ONCE APPT IS SCHEDULED. Follow Up Care Education Label * Mental Health Appt 1 * Additional information UNABLE TO SCHEDULE DUE TO TECHNICAL ISSUES. WILL CONTACT PATIENT ONCE APPT IS SCHEDULED. The amount of time spent in the coordination of care for this patient was approximately 30 minutes. Vital Signs/I&Os Vital Signs Date Time Temp Pulse Resp B/P (MAP) Pulse Ox O2 Delivery O2 Flow Rate FiO2 02/21/19 07:08 98.0 72 14 139/62 (87) Medications Scheduled Cyclobenzaprine HCl (Cyclobenzaprine HCl) 5 Mg Tablet, 5 MG PO BID for muscle spasms, #14 Sertraline HCl (Sertraline HCl) 100 Mg Tablet, 100 MG PO DAILY for depression, #7 Trazodone HCl (Trazodone HCl) 50 Mg Tab, 75 TAB PO QHS, (Reported) Scheduled PRN Hydroxyzine HCl (Hydroxyzine HCl) 50 Mg Tablet, 50 MG PO Q6H PRN for ANXIETY/AGITATION, #28 Melatonin (Melatonin) 10 Mg Cap, 10 MG PO QHS PRN for SLEEP, (Reported) Trazodone HCl (Trazodone HCl) 50 Mg Tablet, 50 MG PO QHSP PRN for INSOMNIA, #7 Allergies Coded Allergies: No Known Allergies (Unverified , 12/09/18) LORIE RIDDLE MD Feb 21, 2019 20:13
== END 2019-02-21 13:45 | disposition home or self-care (01) | DRG 885 ==
LOC: M ED 14:07 → M ED INP 02-08 17:10 → M PSY 02-08 18:09
PROVIDERS: ADMIT Psychiatry & Neurology Psychiatry; ATTEND Psychiatry & Neurology Psychiatry
DX: F33.2 Major depressive disorder, recurrent severe without psychotic features (principal); Z79.899 Other long term (current) drug therapy; M54.5 Low back pain; M54.2 Cervicalgia

== ENCOUNTER 2019-04-05 02:19 | Emergency (ER) | payer OTHER ==
[~2019-04-05] VITALS: Ht 165.1 cm; Wt 84.5 kg
[~2019-04-05 02:19] MED LIST changes: +CYCL5TAB PO; +HYDRO50TAB PO; +MELA10CA PO; +SERT-138 PO; +TRAZ1TAB10 PO; +TRAZ1TAB11 PO; -TRAZ25TA PO
[2019-04-05] MEDS ORDERED: MIRT1TAB15 PO (02:32)
[2019-04-05 05:45] VITALS: BP 146/94
== END 2019-04-05 05:50 | disposition home or self-care (01) ==
LOC: M ED 02:19
DX: R07.89 Other chest pain (principal)

== ENCOUNTER 2019-08-18 12:42 | Inpatient (IN) | payer OTHER ==
[~2019-08-18 12:42] MED LIST changes: +HYDR1TAB33 PO; -HYDRO50TAB PO; +MIRT1TAB15 PO
[2019-08-18] MEDS ORDERED: ATOM60CA PO (13:23)
[2019-08-18] MEDS ORDERED: MELA5CAP2 PO (13:23)
[2019-08-18] MEDS ORDERED: EFFE37.5 PO (13:23)
[2019-08-18] MEDS ORDERED: TRAZ-252 PO (13:23)
[2019-08-18] MEDS ORDERED: IBUP200C25 PO (13:23)
[2019-08-18 14:16] LABS: HEMATOCRIT 46.3 % (42.0-52.0); HEMOGLOBIN 16.1 g/dl (13.5-17.5); MEAN CORPUSCULAR HEMOGLOBIN 29.9 pg (27.0-33.0); MEAN CORPUSCULAR HGB CONC 34.8 g/dl (32.0-36.5); MEAN CORPUSCULAR VOLUME 85.9 fl (80.0-96.0); PLATELET COUNT, AUTOMATED 264 10^3/uL (150-450); RED BLOOD COUNT 5.39 10^6/uL (4.30-6.10); WHITE BLOOD COUNT 11.3 10^3/uL (4.0-10.0)
[2019-08-18 14:56] LABS: ACETAMINOPHEN LEVEL < 2.0 UG/ML (10.0-30.0); ALT/SGPT 56 U/L (12-78); BILIRUBIN,DIRECT 0.2 MG/DL (0.0-0.2); BILIRUBIN,TOTAL 0.7 MG/DL (0.2-1.0); BLOOD UREA NITROGEN 17 MG/DL (7-18); CALCIUM LEVEL 8.9 MG/DL (8.5-10.1); CARBON DIOXIDE LEVEL 26 MEQ/L (21-32); CHLORIDE LEVEL 105 MEQ/L (98-107); CREATININE FOR GFR 1.11 MG/DL (0.70-1.30); ETHYL ALCOHOL (ETHANOL) < 0.003 % (0.000-0.010); GLOMERULAR FILTRATION RATE > 60.0 (>60); GLUCOSE, FASTING 80 MG/DL (70-100); POTASSIUM SERUM 4.2 MEQ/L (3.5-5.1); SALICYLATE LEVEL < 1.7 MG/DL (5.0-30.0); SODIUM LEVEL 137 MEQ/L (136-145); TOTAL PROTEIN 7.5 GM/DL (6.4-8.2)
[2019-08-18 15:12] LABS: AMPHETAMINES LEVEL URINE NEGATIVE (NEGATIVE); BARBITURATES URINE NEGATIVE (NEGATIVE); BENZODIAZEPINES URINE NEGATIVE (NEGATIVE); CANNABINOIDS URINE NEGATIVE (NEGATIVE); COCAINE METABOLITE URINE NEGATIVE (NEGATIVE); METHADONE URINE NEGATIVE (NEGATIVE); OPIATES URINE NEGATIVE (NEGATIVE); PHENCYCLIDINE URINE NEGATIVE (NEGATIVE)
[2019-08-18] MEDS ORDERED: MAALOX 30 ML SUSP *UDC PO PRN (17:15)
[2019-08-18] MEDS ORDERED: MOM 30ML SUSPENSION UDC PO PRN (17:15)
[2019-08-18] MEDS ORDERED: hydrOXYzine 50 MG TAB PO PRN (17:15)
[2019-08-18] MEDS ORDERED: IBUP200T45 PO (18:05)
[2019-08-18] MEDS ORDERED: MELA3CAP2 PO (18:05)
[2019-08-18] MEDS ORDERED: CYCL5TAB PO (18:06)
[2019-08-18] MEDS ORDERED: CYCLOBENZAPRINE 5MG TABLET PO PRN (18:30)
[2019-08-18 18:32] VITALS: BP 139/90
[2019-08-18] MEDS: traZODone 50 MG TAB PO SCH (20:19)
[2019-08-19 06:09] VITALS: BP 129/65
[2019-08-19] MEDS: ATOMOXETINE HCL 40 MG CAP (STRATTERA) PO SCH (08:39)
[2019-08-19] MEDS: VENLAFAXINE **XR** 37.5 MG CAPSULE PO SCH (08:39)
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
[2019-08-19 17:27] VITALS: BP 145/72
[2019-08-19] MEDS: traZODone 50 MG TAB PO SCH (22:51)
[2019-08-20 06:26] VITALS: BP 120/63
--- NOTE | 2019-08-20 07:13 | HPE ---
DATE OF ADMISSION: 08/18/2019 Please refer to the psychiatric history and evaluation for further details on this admission. This examination and history is intended for medical issues which may need treatment, followup or consultation on this 34-year-old male. 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 ETOH - every weekend and sometimes more to intoxication. He does not smoke cigarettes. He does not use recreational drugs. ALLERGIES: No known drug allergies. PAST MEDICAL HISTORY: Chronic back pain. He goes to [facility]. PAST SURGICAL HISTORY: Negative. HOME MEDICATIONS: - ibuprofen 400 mg by mouth every 8 hours as needed for pain - trazodone 50 mg by mouth at bedtime - Strattera 60 mg by mouth daily - melatonin 3 mg capsule, he takes 9 mg by mouth at bedtime as needed for sleep - cyclobenzaprine 5 mg by mouth twice a day as needed muscle spasm - venlafaxine 37.5 mg by mouth daily LABORATORY STUDIES: White count 11.3, hemoglobin 16.1, hematocrit 46.3, platelets 264. Electrolytes were normal. BUN 19, creatinine 1.11. Toxicology was negative. FAMILY HISTORY: Mother is alive and well. Father has terminal illness, he did not wish to discuss. REVIEW OF SYSTEMS: 10 systems review was done and other than chronic back pain was negative. PHYSICAL EXAMINATION: 34-year-old cooperative male in no acute distress. Blood pressure 129/65, pulse 66, respirations 16, temperature 97.3, oxygen saturation 99% on room air. The patient is alert and oriented times three. Pupils equal and reactive to light. Extraocular movements intact. Cornea and sclera clear. Conjunctiva normal. No facial asymmetry. Pharynx, tongue and gums pink and moist. Tongue is midline. Neck is supple, without lymphadenopathy. No thyromegaly. No goiter. Carotids 2+, without bruit. Chest clear to auscultation, without wheeze or retraction. Heart is regular. Abdomen benign. Bowel sounds positive. Genitourinary ()/Rectal: Not done. Extremities show no cyanosis, clubbing or edema. Full range of motion. Peripheral pulses equal and palpable bilaterally. Skin is warm and dry. IMPRESSION AND PLAN: 1. Psychiatric. Plan per psychiatry. 2. Chronic back pain. Continue to followup with [facility]. 3. Monitor for ETOH withdrawal. 4. No other acute medical issues.
--- NOTE | 2019-08-20 08:59 | MHIPNPDOC ---
[facility] Progress Note Progress Note DATE OF SERVICE: 08/20/19 HISTORY: Patient is a 34 -year-old , AD, male, with a history of depression and alcohol use d/o last admitted [facility] 02/08/19 who was brought to Ed by EMS after he voiced SI with desire to . Pt stated in ED, "I want to " secondary to disliking his job in the and wanting to be medically d/c. He endorsed self medicating his mood with alcohol daily in the ED. Per ED, he stated he attempted suicide 1 month ago by cutting his wrists but never told anyone or sought out help. Per ED, he continues to voice SI with desire to . He denies HI, hallucinations, delusions. Pt seen and states he wants to kill himself b/c he dislikes being in the [facility] b/c it's hard work. Attempted to ask pt if it was worth killing himself if he was going to be medically discharged from the in the near future. 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 He does not look depressed at all. I did tell pt my thoughts and then started yelling at me, walking out of my office, refusing to see me again. Is staff splitting as told his nurse he wanted to be d/c today b/c "I have stuff to do." VITAL SIGNS: See below. NEW TEST RESULTS: See below. CURRENT MEDICATIONS: See below. MENTAL STATUS EXAMINATION: General Appearance: well groomed, appears stated age, hospital scubs/clothing, other (eating yogurt) Build: overweight Demeanor: cooperative Eye Contact: fair Activity: average Behavior: cooperative, average Speech: clear, reg rate/volume Mood: euthymic Mood "ok." Affect: appropriate, euthymic, full range, congruent Thought Process: logical/linear, intact Thought Content (Delusions): denies SI, HI, AVH (denies HI, AVH), other (States he wants to kill himself b/c he's in the even though he's being med boarded out in the next few months) Thought Content (Other): appropriate, other (less egotistical, superior) Thought Content (Aggressive): none reported Perception (Hallucinations): none reported Perception (Other): none reported Cognition (Impairment of): improved attention/concentration (refuses to listen to anything that may aid him or any questions about his feelings, must talk over me) Cognition(Intelligence Est.): average Oriented: Awake, Alert, Oriented times three Insight: fair Judgment: Fair Psychosis: Denies Diagnoses Depression unspecified R/O substance induced depression secondary alcohol Alcohol use d/o R/O malingering d/o ASSESSMENT::Pt seen sitting with peers in day room and states that his mood is "ok". States he slept well last night. Feels he is tolerating his medications and they're beneficial. He is attending groups and finding them helpful. He is much more pleasant and cooperative today. He denies SI/HI, hallucinations, delusions. Pt feels safe here. MANAGEMENT PLAN: continue plan effexor xr 37.5mg daily strattera 60mg daily trazodone 50mg qhs TIME SPENT: 30 minutes. Vital Signs Vital Signs Date Time Temp Pulse Resp B/P (MAP) Pulse Ox O2 Delivery O2 Flow Rate FiO2 08/20/19 06:26 99.2 77 14 120/63 (82) 08/19/19 12:54 Room Air 08/18/19 13:12 99 Current Medications Current Medications Medications (Trade) Dose Ordered Sig/Alexandrea Route PRN Reason Start Time Stop Time Status Last Admin Dose Admin Al Hydrox/Mg Hydrox/Simethicone (Mylanta) 30 ml Q4HP PRN PO HEARTBURN/INDIGESTION 08/18/19 17:15 Atomoxetine HCl (Strattera (Atomoxetine)) 40 mg QAM PO 08/19/19 09:00 08/19/19 08:39 Cyclobenzaprine HCl (Flexeril) 5 mg BIDP PRN PO MUSCLE SPASMS 08/18/19 18:30 Home Med (Med Rec Complete!) ASDIRECTED XX 08/18/19 18:30 10/10/19 18:18 DC Hydroxyzine HCl (Atarax) 50 mg Q4HP PRN PO ANXIETY/AGITATION 08/18/19 17:15 Ibuprofen (Advil) 400 mg Q6HP PRN PO PAIN 08/18/19 17:15 Magnesium Hydroxide (Milk Of Magnesia) 30 ml DAILYPRN PRN PO CONSTIPATION 08/18/19 17:15 Trazodone HCl (Desyrel) 50 mg QHS PO 08/18/19 21:00 08/19/19 22:51 Venlafaxine HCl (Effexor Xr) 37.5 mg DAILY PO 08/19/19 09:00 08/19/19 08:39 Allergies Coded Allergies: No Known Allergies (Unverified , 12/09/18) CHRISTIAN NICOLE DO Aug 20, 2019 8:53 am
[2019-08-20] MEDS: VENLAFAXINE **XR** 37.5 MG CAPSULE PO SCH (09:14)
[2019-08-20] MEDS: ATOMOXETINE HCL 40 MG CAP (STRATTERA) PO SCH (09:14)
[2019-08-20 15:55] VITALS: BP 110/56
[2019-08-20] MEDS: traZODone 50 MG TAB PO SCH (22:14)
[2019-08-21 06:13] VITALS: BP 115/56
[2019-08-21] MEDS: VENLAFAXINE **XR** 37.5 MG CAPSULE PO SCH (09:02)
[2019-08-21] MEDS: ATOMOXETINE HCL 40 MG CAP (STRATTERA) PO SCH (09:02)
--- NOTE | 2019-08-21 09:34 | MHIPNPDOC ---
[facility] Progress Note Progress Note DATE OF SERVICE: 08/21/19 HISTORY: Patient is a 34 -year-old , AD, male, with a history of depression and alcohol use d/o last admitted [facility] 02/08/19 who was brought to Ed by EMS after he voiced SI with desire to . Pt stated in ED, "I want to " secondary to disliking his job in the and wanting to be medically d/c. He endorsed self medicating his mood with alcohol daily in the ED. Per ED, he stated he attempted suicide 1 month ago by cutting his wrists but never told anyone or sought out help. Per ED, he continues to voice SI with desire to . He denies HI, hallucinations, delusions. Pt seen and states he wants to kill himself b/c he dislikes being in the [employer] [facility] b/c it's hard work. Attempted to ask pt if it was worth killing himself if he was going to be medically discharged from the in the near future. 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 He does not look depressed at all. I did tell pt my thoughts and then started yelling at me, walking out of my office, refusing to see me again. Is staff splitting as told his nurse he wanted to be d/c today b/c "I have stuff to do." VITAL SIGNS: See below. NEW TEST RESULTS: See below. CURRENT MEDICATIONS: See below. MENTAL STATUS EXAMINATION: General Appearance: well groomed, appears stated age, hospital scrubs/clothing Build: overweight Demeanor: cooperative Eye Contact: fair Activity: average Behavior: cooperative, average Speech: clear, reg rate/volume Mood: euthymic Mood "good." Affect: appropriate, euthymic, full range, congruent Thought Process: logical/linear, intact Thought Content (Delusions): denies SI, HI, AVH Thought Content (Other): appropriate Thought Content (Aggressive): none reported Perception (Hallucinations): none reported Perception (Other): none reported Cognition (Impairment of): none reported Cognition(Intelligence Est.): average Oriented: Awake, Alert, Oriented times three Insight: fair Judgment: Fair Psychosis: Denies Diagnoses Depression unspecified R/O substance induced depression secondary alcohol Alcohol use d/o R/O malingering d/o ASSESSMENT::Pt seen sitting with peers in day room again and states that his mood is "good" and he'd like to go home tomorrow. States he slept well last night. Feels he is tolerating his medications and they're beneficial. He is attending groups and finding them helpful. He is pleasant and cooperative again today. He denies SI/HI, hallucinations, delusions. Pt feels safe here. MANAGEMENT PLAN: continue plan effexor xr 37.5mg daily strattera 60mg daily trazodone 50mg qhs TIME SPENT: 30 minutes. Vital Signs Vital Signs Date Time Temp Pulse Resp B/P (MAP) Pulse Ox O2 Delivery O2 Flow Rate FiO2 08/21/19 06:13 98.1 76 14 115/56 (75) 08/20/19 09:00 Room Air 08/18/19 13:12 99 Current Medications Current Medications Medications (Trade) Dose Ordered Sig/Alexandrea Route PRN Reason Start Time Stop Time Status Last Admin Dose Admin Al Hydrox/Mg Hydrox/Simethicone (Mylanta) 30 ml Q4HP PRN PO HEARTBURN/INDIGESTION 08/18/19 17:15 Atomoxetine HCl (Strattera (Atomoxetine)) 40 mg QAM PO 08/19/19 09:00 08/21/19 09:02 Cyclobenzaprine HCl (Flexeril) 5 mg BIDP PRN PO MUSCLE SPASMS 08/18/19 18:30 Home Med (Med Rec Complete!) ASDIRECTED XX 08/18/19 18:30 08/18/19 18:18 DC Hydroxyzine HCl (Atarax) 50 mg Q4HP PRN PO ANXIETY/AGITATION 08/18/19 17:15 Ibuprofen (Advil) 400 mg Q6HP PRN PO PAIN 08/18/19 17:15 Magnesium Hydroxide (Milk Of Magnesia) 30 ml DAILYPRN PRN PO CONSTIPATION 08/18/19 17:15 Trazodone HCl (Desyrel) 50 mg QHS PO 08/18/19 21:00 08/20/19 22:14 Venlafaxine HCl (Effexor Xr) 37.5 mg DAILY PO 08/19/19 09:00 08/21/19 09:02 Allergies Coded Allergies: No Known Allergies (Unverified , 12/09/18) CHRISTIAN NICOLE DO Aug 21, 2019 9:34 am
[2019-08-21 15:52] VITALS: BP 127/64
[2019-08-21] MEDS: traZODone 50 MG TAB PO SCH (21:41)
[2019-08-22 06:02] VITALS: BP 108/53
[2019-08-22] MEDS: ATOMOXETINE HCL 40 MG CAP (STRATTERA) PO SCH (09:33)
[2019-08-22] MEDS: VENLAFAXINE **XR** 37.5 MG CAPSULE PO SCH (09:33)
--- NOTE | 2019-08-22 10:59 | MHIPNPDOC ---
[facility] Progress Note Progress Note DATE OF SERVICE: 08/22/19 HISTORY: Patient is a 34 -year-old , AD, male, with a history of depression and alcohol use d/o last admitted [facility] 02/08/19 who was brought to Ed by EMS after he voiced SI with desire to . Pt stated in ED, "I want to " secondary to disliking his job in the and wanting to be medically d/c. He endorsed self medicating his mood with alcohol daily in the ED. Per ED, he stated he attempted suicide 1 month ago by cutting his wrists but never told anyone or sought out help. Per ED, he continues to voice SI with desire to . He denies HI, hallucinations, delusions. Pt seen and states he wants to kill himself b/c he dislikes being in the [employer] b/c it's hard work. Attempted to ask pt if it was worth killing himself if he was going to be medically discharged from the in the near future. 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 He does not look depressed at all. I did tell pt my thoughts and then started yelling at me, walking out of my office, refusing to see me again. Is staff splitting as told his nurse he wanted to be d/c today b/c "I have stuff to do." VITAL SIGNS: See below. NEW TEST RESULTS: See below. CURRENT MEDICATIONS: See below. MENTAL STATUS EXAMINATION: General Appearance: well groomed, appears stated age, hospital scrubs/clothing Build: overweight Demeanor: cooperative, Guarded. Eye Contact: fair Activity: average Behavior: cooperative, average, guarded Speech: clear, reg rate/volume Mood: euthymic Mood "I feel ok" Affect: appropriate, euthymic, full range, congruent Thought Process: logical/linear, intact Thought Content (Delusions): denies SI, HI, AVH Thought Content (Other): appropriate Thought Content (Aggressive): none reported Perception (Hallucinations): none reported Perception (Other): none reported Cognition (Impairment of): none reported Cognition(Intelligence Est.): average Oriented: Awake, Alert, Oriented times three Insight: fair Judgment: Fair Psychosis: Denies Diagnoses Depression unspecified R/O substance induced depression secondary alcohol Alcohol use d/o R/O malingering d/o ASSESSMENT: Patient was seen in the lounge talking with other residents. He accompanied the resident to my office and would only be seen in my office with a nurse present. Patient again was asked that if he was discharged from the would his suicidal thoughts would go away and he acknowledged that it likely would. This manipulative behavior is problematic though he seems to be coming to terms with his service by reminding himself that it is only for 3 years. He presently denies SI, HI, AVH. He is otherwise doing well, though he is fairly guarded during our encounter. He is attending groups and feels they are helping. He is taking his medications without side effects and feels they are helping as well. He did not difficulties sleeping last night. Patient feels safe here. MANAGEMENT PLAN: continue plan effexor xr 37.5mg daily strattera 60mg daily trazodone 50mg qhs TIME SPENT: 30 minutes. Vital Signs Vital Signs Date Time Temp Pulse Resp B/P (MAP) Pulse Ox O2 Delivery O2 Flow Rate FiO2 08/22/19 06:02 98.3 77 14 108/53 (71) 08/21/19 09:00 Room Air 08/18/19 13:12 99 Current Medications Current Medications Medications (Trade) Dose Ordered Sig/Alexandrea Route PRN Reason Start Time Stop Time Status Last Admin Dose Admin Al Hydrox/Mg Hydrox/Simethicone (Mylanta) 30 ml Q4HP PRN PO HEARTBURN/INDIGESTION 08/18/19 17:15 08/21/19 15:04 Atomoxetine HCl (Strattera (Atomoxetine)) 40 mg QAM PO 08/19/19 09:00 08/22/19 09:33 Cyclobenzaprine HCl (Flexeril) 5 mg BIDP PRN PO MUSCLE SPASMS 08/18/19 18:30 Home Med (Med Rec Complete!) ASDIRECTED XX 08/18/19 18:30 08/18/19 18:18 DC Hydroxyzine HCl (Atarax) 50 mg Q4HP PRN PO ANXIETY/AGITATION 08/18/19 17:15 Ibuprofen (Advil) 400 mg Q6HP PRN PO PAIN 08/18/19 17:15 Magnesium Hydroxide (Milk Of Magnesia) 30 ml DAILYPRN PRN PO CONSTIPATION 08/18/19 17:15 08/21/19 21:41 Trazodone HCl (Desyrel) 50 mg QHS PO 08/18/19 21:00 08/21/19 21:41 Venlafaxine HCl (Effexor Xr) 37.5 mg DAILY PO 08/19/19 09:00 08/22/19 09:33 Allergies Coded Allergies: No Known Allergies (Unverified , 12/09/18) CHRISTIAN NICOLE DO Aug 22, 2019 10:29 am
[2019-08-22] MEDS: IBUPROFEN 400 MG TAB PO PRN (15:13)
[2019-08-22 15:35] VITALS: BP 138/84
[2019-08-22] MEDS: traZODone 50 MG TAB PO SCH (20:31)
[2019-08-23 06:38] VITALS: BP 127/81
[2019-08-23] MEDS ORDERED: ATOM60CA PO (08:38)
[2019-08-23] MEDS ORDERED: EFFE37.5 PO (08:38)
[2019-08-23] MEDS ORDERED: TRAZ-252 PO (08:38)
--- NOTE | 2019-08-23 08:38 | MHDSPDOC ---
[facility] Discharge Summary Discharge Summary DATE OF ADMISSION: Aug 18, 2019 at 5:07 pm DATE OF DISCHARGE: Aug 23, 2019 DISCHARGE DIAGNOSES: Depression unspecified R/O substance induced depression secondary alcohol Alcohol use d/o R/O malingering d/o REASON FOR ADMISSION: Patient is a 34 -year-old , AD, male, with a history of depression and alcohol use d/o last admitted [facility] 02/08/19 who was brought to Ed by [facility] after he voiced SI with desire to . Pt stated in ED, "I want to " secondary to disliking his job in the and wanting to be medically d/c. He endorsed self medicating his mood with alcohol daily in the ED. Per ED, he stated he attempted suicide 1 month ago by cutting his wrists but never told anyone or sought out help. Per ED, he continues to voice SI with desire to . He denies HI, hallucinations, delusions. Pt seen and states he wants to kill himself b/c he dislikes being in the b/c it's hard work. Attempted to ask pt if it was worth killing himself if he was going to be medically discharged from the in the near future. 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 He does not look depressed at all. I did tell pt my thoughts and then started yelling at me, walking out of my office, refusing to see me again. Is staff splitting as told his nurse he wanted to be d/c today b/c "I have stuff to do." CONSULTANTS INVOLVED: none TREATMENT AND PROGRESS ON THE UNIT : Pt was admitted to [facility], seen for psy chiatric assessment and restarted on his outpatient medication effexor xr 37.5mg daily and strattera 60mg daily. He was provided trazodone 50mg qhs prn insomnia. Pt found his medications beneficial and tolerated them well. He attended groups daily during his stay. His symptoms improved with treatment. He became more cooperative during his stay. On day of discharge he denied depression, anxiety, insomnia, SI/HI, hallucinations, delusions. He was discharged home after Brant meeting with follow-up at [facility]. He felt safe for discharge. DISCHARGE ASSESSMENT: Patient was seen and states he feels "good" and is looking forward to going home today with his Brant. He is more cooperative with interview prior d/c and less guarded, narcissistic. He presently denies SI, HI, AVH. He denies depression and does not appear depressed in affect. He is attending groups and feels they are helping. He is taking his medications without side effects and feels they are helpful. He did not difficulties sleeping last night. He denies depression, anxiety, insomnia, SI/HI, hallucinations, delusions. He feels safe to be discharged home with his Brant. MENTAL STATUS EXAMINATION ON DISCHARGE: General Appearance: well groomed, appears stated age, hospital scrubs/clothing Build: overweight Demeanor: cooperative Eye Contact: good Activity: average Behavior: cooperative, average Speech: clear, reg rate/volume Mood: euthymic Mood "good" Affect: appropriate, euthymic, full range, congruent Thought Process: logical/linear, intact Thought Content (Delusions): denies SI, HI, AVH Thought Content (Other): appropriate Thought Content (Aggressive): none reported Perception (Hallucinations): none reported Perception (Other): none reported Cognition (Impairment of): none reported Cognition(Intelligence Est.): average Oriented: Awake, Alert, Oriented times three Insight: good Judgment: good Psychosis: Denies MEDICATIONS ON DISCHARGE: effexor xr 37.5mg daily strattera 60mg daily trazodone 50mg qhs PLAN/FOLLOWUP ARRANGEMENTS: D/c home with Brant with follow-up at [facility]. The amount of time spent in the coordination of care for this patient was approximately 30 minutes. Vital Signs/I&Os Vital Signs Date Time Temp Pulse Resp B/P (MAP) Pulse Ox O2 Delivery O2 Flow Rate FiO2 08/23/19 06:38 97.9 79 14 127/81 (96) 08/22/19 11:24 Room Air 08/18/19 13:12 99 Medications Scheduled Atomoxetine Hydrochloride (Strattera) 60 Mg Capsule, 60 MG PO DAILY for ., (Reported) Trazodone HCl (Trazodone HCl) 50 Mg Tablet, 50 MG PO QHS for ., (Reported) Venlafaxine HCl (Effexor Xr) 37.5 Mg Cap.er.24h, 37.5 MG PO DAILY for ., (Reported) Scheduled PRN Cyclobenzaprine HCl (Cyclobenzaprine HCl) 5 Mg Tablet, 5 MG PO BID PRN for MUSCLE SPASMS, (Reported) Ibuprofen (Ibu-200) 200 Mg Tablet, 400 MG PO Q8H PRN for PAIN, (Reported) Melatonin (Melatonin) 3 Mg Capsule, 9 MG PO QHS PRN for SLEEP, (Reported) Allergies Coded Allergies: No Known Allergies (Unverified , 12/09/18) CHRISTIAN NICOLE DO Aug 23, 2019 8:38 am
[2019-08-23] MEDS: VENLAFAXINE **XR** 37.5 MG CAPSULE PO SCH (09:12)
[2019-08-23] MEDS: ATOMOXETINE HCL 40 MG CAP (STRATTERA) PO SCH (09:12)
[2019-08-23] MEDS: IBUPROFEN 400 MG TAB PO PRN (12:12)
== END 2019-08-23 13:25 | disposition home or self-care (01) | DRG 881 ==
LOC: M ED 12:42 → M ED INP 17:07 → M PSY 17:32
PROVIDERS: ADMIT Psychiatry & Neurology Psychiatry; ATTEND Psychiatry & Neurology Psychiatry
DX: F32.9 Major depressive disorder, single episode, unspecified (principal); F10.94 Alcohol use, unspecified with alcohol-induced mood disorder; Z76.5 Malingerer [conscious simulation]; M54.5 Low back pain; Z79.899 Other long term (current) drug therapy

== ENCOUNTER 2019-11-15 11:14 | Emergency (ER) | payer OTHER ==
[~2019-11-15] VITALS: Ht 167.6 cm; Wt 79.7 kg
[~2019-11-15 11:14] MED LIST changes: +ATOM60CA PO; +EFFE37.5 PO; +IBUP200C25 PO; +IBUP200T45 PO; +MELA3CAP2 PO; +MELA5CAP2 PO; +TRAZ-252 PO
[2019-11-15] MEDS ORDERED: ONDA4TAB6 PO (12:29)
[2019-11-15] MEDS ORDERED: ATOM40CA PO (12:29)
[2019-11-15] MEDS ORDERED: EFFE75CA2 PO (12:29)
[2019-11-15] MEDS ORDERED: PROMETHAZINE INJ 25 MG/ML VIAL (J2550) IV ONE (13:00)
[2019-11-15] MEDS ORDERED: ONDANSETRON 4MG/2ML VIAL (J2405) IV ONE (13:00)
[2019-11-15] MEDS ORDERED: PANTOPRAZOLE 40MG INJ (PROTONIX) (C9113) IV ONE (13:00)
--- NOTE | 2019-11-15 13:58 | REP ---
Acute abdominal series: Three views. History: Emesis. Findings: Upright chest radiograph is normal. EKG monitoring electrodes are seen. There is no evidence of infiltrate or free subdiaphragmatic air. Heart size is normal. Supine and erect views of the abdomen show a normal bowel gas pattern. Psoas margins and flank stripes are intact. No mass, organomegaly or pathologic calcification is seen. Impression: Unremarkable bowel gas pattern. Electronically Signed by Cachorro Florez MD 11/15/2019 01:50 P
[2019-11-15 14:04] LABS: BASO # 0.1 10^3/uL (0.0-0.2); BASO % 0.6 % (0.0-1.0); EOS # 0.1 10^3/uL (0.0-0.5); EOS % 0.6 % (0.0-3.0); HEMATOCRIT 51.7 % (42.0-52.0); HEMOGLOBIN 18.1 g/dl (13.5-17.5); LYMPH # 2.7 10^3/uL (1.5-5.0); LYMPH % 23.6 % (24.0-44.0); MEAN CORPUSCULAR HEMOGLOBIN 29.6 pg (27.0-33.0); MEAN CORPUSCULAR VOLUME 84.6 fl (80.0-96.0); MONO # 1.1 10^3/uL (0.0-0.8); MONO % 9.9 % (0.0-5.0); NEUTROPHILS # 7.3 10^3/uL (1.5-8.5); NEUTROPHILS % 64.9 % (36.0-66.0); PLATELET COUNT, AUTOMATED 285 10^3/uL (150-450); RED BLOOD COUNT 6.11 10^6/uL (4.30-6.10); WHITE BLOOD COUNT 11.3 10^3/uL (4.0-10.0)
[2019-11-15 14:55] LABS: ALBUMIN 4.6 GM/DL (3.2-5.2); ALT/SGPT 34 U/L (12-78); BILIRUBIN,DIRECT 0.3 MG/DL (0.0-0.2); BILIRUBIN,TOTAL 1.9 MG/DL (0.2-1.0); BLOOD UREA NITROGEN 24 MG/DL (7-18); CALCIUM LEVEL 9.7 MG/DL (8.5-10.1); CARBON DIOXIDE LEVEL 19 MEQ/L (21-32); CHLORIDE LEVEL 102 MEQ/L (98-107); CREATININE FOR GFR 1.28 MG/DL (0.70-1.30); GLOMERULAR FILTRATION RATE > 60.0 (>60); GLUCOSE, FASTING 76 MG/DL (70-100); LIPASE 182 U/L (73-393); SODIUM LEVEL 135 MEQ/L (136-145); TOTAL PROTEIN 8.9 GM/DL (6.4-8.2)
[2019-11-15 15:31] VITALS: BP 145/92
== END 2019-11-15 16:00 | disposition home or self-care (01) ==
LOC: M ED 11:14
DX: K52.9 Noninfective gastroenteritis and colitis, unspecified (principal); F33.9 Major depressive disorder, recurrent, unspecified; Z79.899 Other long term (current) drug therapy
CPT/HCPCS: 36415; 74021; 80048; 80076; 83690; 85025; 96374; 96375; 99284; C9113; J2405

== ENCOUNTER 2019-12-01 15:32 | Inpatient (IN) | payer OTHER ==
[~2019-12-01] VITALS: Ht 165.1 cm; Wt 77.6 kg
[~2019-12-01 15:32] MED LIST changes: +ATOM40CA PO; +EFFE75CA2 PO; +ONDA4TAB6 PO
[2019-12-01 16:22] LABS: HEMATOCRIT 51.5 % (42.0-52.0); HEMOGLOBIN 17.2 g/dl (13.5-17.5); MEAN CORPUSCULAR HEMOGLOBIN 28.7 pg (27.0-33.0); MEAN CORPUSCULAR HGB CONC 33.4 g/dl (32.0-36.5); MEAN CORPUSCULAR VOLUME 85.8 fl (80.0-96.0); PLATELET COUNT, AUTOMATED 327 10^3/uL (150-450); WHITE BLOOD COUNT 9.1 10^3/uL (4.0-10.0)
[2019-12-01 16:58] LABS: ACETAMINOPHEN LEVEL < 2.0 UG/ML (10.0-30.0); ALT/SGPT 50 U/L (12-78); BILIRUBIN,DIRECT 0.4 MG/DL (0.0-0.2); BILIRUBIN,TOTAL 1.6 MG/DL (0.2-1.0); BLOOD UREA NITROGEN 13 MG/DL (7-18); CALCIUM LEVEL 9.5 MG/DL (8.5-10.1); CARBON DIOXIDE LEVEL 23 MEQ/L (21-32); CHLORIDE LEVEL 104 MEQ/L (98-107); CREATININE FOR GFR 1.12 MG/DL (0.70-1.30); ETHYL ALCOHOL (ETHANOL) < 0.003 % (0.000-0.010); GLOMERULAR FILTRATION RATE > 60.0 (>60); GLUCOSE, FASTING 77 MG/DL (70-100); POTASSIUM SERUM 3.6 MEQ/L (3.5-5.1); SALICYLATE LEVEL < 1.7 MG/DL (5.0-30.0); SODIUM LEVEL 138 MEQ/L (136-145); TOTAL PROTEIN 8.6 GM/DL (6.4-8.2)
[2019-12-01 20:32] LABS: AMPHETAMINES LEVEL URINE NEGATIVE (NEGATIVE); BARBITURATES URINE NEGATIVE (NEGATIVE); BENZODIAZEPINES URINE NEGATIVE (NEGATIVE); CANNABINOIDS URINE NEGATIVE (NEGATIVE); COCAINE METABOLITE URINE NEGATIVE (NEGATIVE); METHADONE URINE NEGATIVE (NEGATIVE); OPIATES URINE NEGATIVE (NEGATIVE); PHENCYCLIDINE URINE NEGATIVE (NEGATIVE)
[2019-12-01] MEDS ORDERED: VENLAFAXINE **XR** 75MG CAPSULE PO SCH (21:00)
[2019-12-01] MEDS ORDERED: SILD50TA PO (21:38)
[2019-12-01] MEDS ORDERED: EFFE75CA2 PO (21:38)
[2019-12-01] MEDS ORDERED: CYCL10TA PO (21:38)
[2019-12-01] MEDS ORDERED: TRAZ-252 PO (21:38)
[2019-12-01] MEDS ORDERED: VITMTA PO (21:38)
[2019-12-01] MEDS ORDERED: ATOM40CA PO (21:38)
[2019-12-01] MEDS ORDERED: ACETAMINOPHEN TAB 650MG DOSE (2X325MG) PO PRN (23:15)
[2019-12-01] MEDS ORDERED: CYCLOBENZAPRINE 10 MG TAB PO PRN (23:15)
[2019-12-01] MEDS ORDERED: traZODone 50 MG TAB PO PRN (23:15)
[2019-12-01] MEDS ORDERED: MOM 30ML SUSPENSION UDC PO PRN (23:15)
[2019-12-01] MEDS ORDERED: MAALOX 30 ML SUSP *UDC PO PRN (23:15)
[2019-12-02 00:56] VITALS: BP 139/88
[2019-12-02 07:06] VITALS: BP 132/80
[2019-12-02] MEDS ORDERED: MULTIVITAMINS/MINERALS THERAP 1 TAB PO SCH (09:00)
[2019-12-02] MEDS ORDERED: ATOMOXETINE HCL 40 MG CAP (STRATTERA) PO SCH (09:00)
[2019-12-02] MEDS ORDERED: hydrOXYzine 25 MG TAB PO ONE (09:30)
--- NOTE | 2019-12-02 11:06 | MHDSPDOC ---
[facility] Discharge Summary Discharge Summary DATE OF ADMISSION: Dec 01, 2019 at 23:14 DATE OF DISCHARGE: 12/02/19 please see h/p for clinical course and dx Vital Signs/I&Os Vital Signs Date Time Temp Pulse Resp B/P (MAP) Pulse Ox O2 Delivery O2 Flow Rate FiO2 12/02/19 07:06 98.4 77 16 132/80 (97) 12/02/19 00:56 97 Room Air Laboratory Data Labs 24H Laboratory Tests 2 12/01/19 16:09: Nucleated Red Blood Cells % (auto) 0.0, Anion Gap 11, Glomerular Filtration Rate > 60.0, Calcium Level 9.5, Total Bilirubin 1.6H, Direct Bilirubin 0.4H, Aspartate Amino Transf (AST/SGOT) 23, Alanine Aminotransferase (ALT/SGPT) 50, Alkaline Phosphatase 109, Total Protein 8.6H, Albumin 5.0, Albumin/Globulin Ratio 1.39, Thyroid Stimulating Hormone (TSH) 4.520H, Salicylates Level < 1.7L, Acetaminophen Level < 2.0L, Ethyl Alcohol Level < 0.003 12/01/19 19:35: Urine Opiates Screen NEGATIVE, Urine Methadone Screen NEGATIVE, Urine Barbiturates Screen NEGATIVE, Urine Phencyclidine Screen NEGATIVE, Urine Amphetamines Screen NEGATIVE, Urine Benzodiazepines Screen NEGATIVE, Urine Cocaine Metabolite Screen NEGATIVE, Urine Cannabinoids Screen NEGATIVE CBC/BMP Laboratory Tests 12/01/19 16:09 Medications Scheduled Atomoxetine HCl (Strattera) 40 Mg Capsule, 40 MG PO DAILY for mood for 7 Days, #7 Multivitamins (Thera M Plus Tablet) 1 Each Tablet, 1 TAB PO DAILY, (Reported) Trazodone HCl (Trazodone HCl) 50 Mg Tablet, 50 MG PO QHS for sleep for 7 Days, #7 Venlafaxine HCl (Effexor Xr) 75 Mg Cap.er.24h, 75 MG PO QHS for mood for 7 Days, #7 Scheduled PRN Cyclobenzaprine HCl (Cyclobenzaprine HCl) 10 Mg Tablet, 10 MG PO TID PRN for MUSCLE SPASMS for 7 Days, #21 Sildenafil Citrate (Viagra) 50 Mg Tablet, 25 MG PO ASDIRECTED PRN for ERECTILE DYSFUNCTION, (Reported) Allergies Coded Allergies: No Known Allergies (Unverified , 12/09/18) JANET SMILEY DO Dec 02, 2019 11:06
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
[2019-12-02] MEDS ORDERED: TRAZ-252 PO (11:21)
[2019-12-02] MEDS ORDERED: ATOM40CA PO (11:21)
[2019-12-02] MEDS ORDERED: EFFE75CA2 PO (11:21)
[2019-12-02] MEDS ORDERED: CYCL10TA PO (11:21)
--- NOTE | 2019-12-02 18:59 | HPE ---
DATE OF ADMISSION: 12/01/2019 HISTORY OF THE PRESENT ILLNESS: Please refer to psychiatric history and evaluation for further details on this admission. This examination and history is intended for medical issues which may need treatment, followup, or consult on this 34-year-old male. ALLERGIES: No known allergies. PRIMARY CARE PROVIDER: [facility]. SOCIAL HISTORY: He is a soldier, currently stationed at [employer]. Ethyl alcohol (EtOH): He used to drink every weekend. He states he is now drinking maybe once a month, if that. He does not smoke cigarettes. He does not use recreational drugs. PAST MEDICAL HISTORY: Chronic back pain for which he went to [facility]. Depression. Anxiety. PAST SURGICAL HISTORY: Negative. CURRENT MEDICATIONS: - Strattera 40 mg by mouth daily - cyclobenzaprine 10 mg three times a day as needed for muscle spasms - trazodone 50 mg by mouth nightly - venlafaxine 75 mg by mouth nightly - Viagra 25 mg as directed as needed for erectile dysfunction - multivitamin one by mouth daily LABORATORY STUDIES: CBC was normal. Electrolytes were normal. BUN 13, creatinine 1.12, total bilirubin 1.6, direct bilirubin 0.4, TSH 4.520. Urine for toxicology was negative. FAMILY HISTORY: Mother is alive and well. Father has a terminal illness; patient does not wish to discuss it. States he is doing okay. REVIEW OF SYSTEMS: Ten-systems review was done and other than chronic pain, he had a rash on his left upper back that he was going to [facility] for. It is receding, non-vesicular, etiology unknown. Otherwise review of systems negative. PHYSICAL EXAMINATION: A 34-year-old cooperative male in no acute distress. Height 65 inches, weight 77.6 kilograms, body mass index (BMI) 28.5, temperature 98.4, pulse 77, respirations 16, blood pressure 132/80, oxygen saturation 98% on room air. The patient is alert and oriented times three. Pupils are equal and reactive to light. Extraocular movements intact. Cornea and sclerae clear. Conjunctivae is normal. No facial asymmetry. Pharynx, tongue and gums pink and moist. Tongue is midline. Neck is supple without lymphadenopathy. No thyromegaly. No goiter. Carotids 2+ without bruits. Chest is clear to auscultation without wheeze or retractions. Heart is regular. Abdomen: Benign. Bowel sounds are positive. Genitalia/Rectal: Not done. Left upper back, flank and scapula area: Non-vesicular, fading, red rash. No redness, swelling or drainage. Extremities: Show equal strength, full range of motion. No cyanosis, clubbing or edema. Peripheral pulses equal and palpable bilaterally. Cranial nerves III-XII grossly intact. IMPRESSION AND PLAN: Psychiatric plan per psychiatry. Patient has been discharged and will be going back to [place]. Continue followup with [facility]. Rash, which is fading.
== END 2019-12-02 12:30 | disposition home or self-care (01) | DRG 883 ==
LOC: M ED 15:32 → M ED INP 23:14 → M PSY 12-02 01:00
PROVIDERS: ADMIT Psychiatry & Neurology Psychiatry; ATTEND Psychiatry & Neurology Addiction Medicine
DX: F60.2 Antisocial personality disorder (principal); Z76.5 Malingerer [conscious simulation]; Z79.899 Other long term (current) drug therapy